=== PATIENT | female | born 1970 | race Caucasian/White ===

== ENCOUNTER 2017-02-02 16:57 | Outpatient (CLI) | payer BC | END 2017-02-02 19:15 | disposition home or self-care (01) | LOC: NST SRH 16:57 → OB SRH 17:01 → NST SRH 19:15 | PROC: 4A0HXCZ Measurement of Products of Conception, Cardiac Rate, External Approach (ICD-10-PCS; principal; 2017-02-02) | DX: O24.419 Gestational diabetes mellitus in pregnancy, unspecified control (principal); O99.283 Endocrine, nutritional and metabolic diseases complicating pregnancy, third trimester; E07.9 Disorder of thyroid, unspecified; O09.513 Supervision of elderly primigravida, third trimester; Z3A.32 32 weeks gestation of pregnancy ==

== ENCOUNTER 2017-02-07 12:12 | Outpatient (CLI) | payer BC ==
--- NOTE | 2017-02-07 16:30 | DIAGNOSTIC IMAGING REPORT ---
PROCEDURE: US BIOPHYSICAL PROFILE (OB) INDICATION: NONREACTIVE NST TECHNIQUE: High-resolution transabdominal scans during 30-minute observation time interval. COMPARISON: None. FINDINGS: movement: 2/2 tone: 2/2 breathin/2 Amniotic fluid index: 2/2 the amniotic fluid index is 17.8 cm Total biophysical profile score: 8/8 Viable intrauterine demonstrates a regular heart rate of 130 beats per minute. IMPRESSION: 1. Normal biophysical profile.
== END 2017-02-07 15:30 | disposition home or self-care (01) ==
LOC: NST SRH 12:12 → OB SRH 12:14 → NST SRH 15:30
PROC: 4A0HXCZ Measurement of Products of Conception, Cardiac Rate, External Approach (ICD-10-PCS; principal; 2017-02-07)
DX: O24.419 Gestational diabetes mellitus in pregnancy, unspecified control (principal); O09.513 Supervision of elderly primigravida, third trimester; Z3A.33 33 weeks gestation of pregnancy

== ENCOUNTER 2017-02-12 13:06 | Outpatient (CLI) | payer BC | END 2017-02-12 13:50 | disposition home or self-care (01) | LOC: NST SRH 13:06 → OB SRH 13:08 → NST SRH 13:50 | PROC: 4A0HXCZ Measurement of Products of Conception, Cardiac Rate, External Approach (ICD-10-PCS; principal; 2017-02-12) | DX: O24.419 Gestational diabetes mellitus in pregnancy, unspecified control (principal); O09.513 Supervision of elderly primigravida, third trimester; Z3A.34 34 weeks gestation of pregnancy | CPT/HCPCS: 40003; 40016; 40021 ==

== ENCOUNTER 2017-02-16 12:42 | Outpatient (CLI) | payer BC | END 2017-02-16 13:35 | disposition home or self-care (01) | LOC: OBC SRH 12:42 → OB SRH 12:45 → OBC SRH 13:35 | PROC: 4A0HXCZ Measurement of Products of Conception, Cardiac Rate, External Approach (ICD-10-PCS; principal; 2017-02-16) | DX: O24.419 Gestational diabetes mellitus in pregnancy, unspecified control (principal); O99.283 Endocrine, nutritional and metabolic diseases complicating pregnancy, third trimester; E07.9 Disorder of thyroid, unspecified; O09.523 Supervision of elderly multigravida, third trimester; Z3A.34 34 weeks gestation of pregnancy | CPT/HCPCS: 40003; 40016 ==

== ENCOUNTER 2017-02-19 13:38 | Outpatient (CLI) | payer BC | END 2017-02-19 15:00 | disposition home or self-care (01) | LOC: NST SRH 13:38 → OB SRH 13:40 → NST SRH 15:00 | PROC: 4A0HXCZ Measurement of Products of Conception, Cardiac Rate, External Approach (ICD-10-PCS; principal; 2017-02-19) | DX: O24.419 Gestational diabetes mellitus in pregnancy, unspecified control (principal); O99.283 Endocrine, nutritional and metabolic diseases complicating pregnancy, third trimester; E07.9 Disorder of thyroid, unspecified; O09.523 Supervision of elderly multigravida, third trimester; Z3A.35 35 weeks gestation of pregnancy | CPT/HCPCS: 40003; 40016; 40021 ==

== ENCOUNTER 2017-03-02 10:56 | Outpatient (CLI) | payer BC | END 2017-03-02 12:30 | disposition home or self-care (01) | LOC: NST SRH 10:56 → OB SRH 10:56 → NST SRH 12:30 | PROC: 4A0HXCZ Measurement of Products of Conception, Cardiac Rate, External Approach (ICD-10-PCS; principal; 2017-03-02) | DX: O24.419 Gestational diabetes mellitus in pregnancy, unspecified control (principal); O99.283 Endocrine, nutritional and metabolic diseases complicating pregnancy, third trimester; E05.80 Other thyrotoxicosis without thyrotoxic crisis or storm; O09.523 Supervision of elderly multigravida, third trimester; Z3A.36 36 weeks gestation of pregnancy | CPT/HCPCS: 40003; 40016; 40021 ==

== ENCOUNTER 2017-03-09 10:38 | Outpatient (CLI) | payer BC | END 2017-03-09 11:30 | disposition home or self-care (01) | LOC: NST SRH 10:38 → OB SRH 10:40 → NST SRH 11:30 | PROC: 4A0HXCZ Measurement of Products of Conception, Cardiac Rate, External Approach (ICD-10-PCS; principal; 2017-03-09) | DX: O24.419 Gestational diabetes mellitus in pregnancy, unspecified control (principal); O99.283 Endocrine, nutritional and metabolic diseases complicating pregnancy, third trimester; E07.9 Disorder of thyroid, unspecified; O09.513 Supervision of elderly primigravida, third trimester; Z3A.37 37 weeks gestation of pregnancy ==